=== PATIENT | male | born 1995 | race Caucasian/White ===

== ENCOUNTER 2018-11-15 10:58 | Emergency (ER) | payer OTHER ==
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
[2018-11-15] MEDS ORDERED: ACETAMINOPHEN 500 MG TAB PO ONE (12:20)
--- NOTE | 2018-11-15 12:36 | RADIOLOGY IMAGING REPORT ---
[place] [facility] [place] NAME: Misha Mayorga : 1995 MR: [id number] V: [id number] EXAM DATE: ORDERING PHYSICIAN: VIRGINIE ENRIQUEZ TECHNOLOGIST: Location: [facility] [place] Patient: Misha Mayorga : 1995 Visit/Account:[id number] Date of Sevice: 11/15/2018 Technique: KNEE 4 VIEW RIGHT HISTORY: knee pain Comparison studies: None FINDINGS: There is no acute fracture. Sequela of previous ACL repair is noted. Osteophytosis and/or enthesopathy is seen along the inferior margin of the patella. No knee joint effusion. IMPRESSION: 1. No acute osseous process. 2. Status post ACL repair. Report Dictated By: Nico Lira DO at 11/15/2018 12:22 PM Report E-Signed By: Nico Lira DO at 11/15/2018 12:23 PM WSN:[id number]
[2018-11-15 13:08] VITALS: BP 135/85
== END 2018-11-15 13:01 | disposition home or self-care (01) ==
LOC: ER 11:09
DX: S83.91XA Sprain of unspecified site of right knee, initial encounter (principal)
CPT/HCPCS: 73564; 99283; L1830